=== PATIENT | female | born 1995 ===

== ENCOUNTER → 2017-12-18 | Emergency (ER) | payer OTHER ==
[~2017-12-18] VITALS: Ht 152.4 cm; Wt 65.8 kg
[~2017-12-18] MED LIST: AMOX1TAB12 PO; BACTROBAN OINT22 GM TP; FLONASE16 G1 NS; NAPROXEN SODIU550 MG PO; TYLENOL-CODEINE1 TAB PO; ZANTAC300 MG PO
== END | disposition home or self-care (01) ==
LOC: ER 00:17
DX: R22.43 Localized swelling, mass and lump, lower limb, bilateral (principal)

== ENCOUNTER 2019-06-22 15:56 | Emergency (ER) | payer OTHER ==
[~2019-06-22] VITALS: Ht 167.6 cm; Wt 61.2 kg
== END 2019-06-22 18:45 | disposition home or self-care (01) ==
LOC: ER 15:56
DX: S60.131A Contusion of right middle finger with damage to nail, initial encounter (principal); W22.8XXA Striking against or struck by other objects, initial encounter; Y93.E1 Activity, personal bathing and showering; Y92.012 Bathroom of single-family (private) house as the place of occurrence of the external cause; Y99.8 Other external cause status